=== PATIENT | female | born 1965 | race Caucasian/White ===

== ENCOUNTER 2024-10-02 14:28 | Inpatient (IN) | payer BC, SELFPAY ==
[2024-10-02 08:17] VITALS: BP 128/79
[2024-10-02 09:32] LABS: % Basophils 0.2 % (0-2); % Immature Granulocytes 0.4 % (0-0.5); % Lymphocytes 15.8 % (20.5-51.1); % Monocytes 9.5 % (1.7-9.3); % Neutrophils 74.1 % (42.2-75.2); Absolute Immature Granulocytes 0.1 10^3/uL (0-0.05); Absolute Monocytes 1.2 10^3/uL (0.1-0.6); Absolute Neutrophils 9.5 10^3/uL (1.4-6.5); Hematocrit 36.9 % (37.0-47.0); Hemoglobin 12.5 g/dL (12.0-16.0); Mean Corp Hgb Conc. 33.9 g/dL (33.0-37.0); Mean Corpuscular Hgb 29.8 pg (27.0-31.0); Mean Corpuscular Volume 87.9 fL (81.0-99.0); Mean Platelet Volume 9.7 fL (7.4-10.4); Nucleated Red Blood Cells % 0 %; Platelet Count 288 10^3/uL (130-400); Red Cell Dist. Width 12.9 % (11.5-14.5); White Blood Cell Count 12.8 10^3/uL (4.8-10.8)
[2024-10-02 09:41] LABS: ALT (SGPT) 21 U/L (0-35); AST (SGOT) 25 U/L (14-36); Albumin 4.2 g/dl (3.5-5.0); Alkaline Phosphatase 78 U/L (38-126); Blood Urea Nitrogen 18 mg/dl (7-17); Carbon Dioxide 30 mmol/L (22-30); Chloride 103 mmol/L (98-107); Glucose 117 mg/dl (70-99); Lipase 67 U/L (23-300); Potassium 4.7 mmol/L (3.5-5.1); Sodium 139 mmol/L (135-145); Total Bilirubin 0.6 mg/dl (0.2-1.3); Total Protein 6.8 g/dl (6.3-8.2); eGFR > 60.00
--- NOTE | 2024-10-02 09:42 | ED.GENMED ---
History of Present Illness
General
Chief Complaint: Abdominal Pain
Source: patient
Exam Limitations: none
Time Seen by Provider: 10/02/24 09:14
History of Present Illness
History of Present Illness:
59yoF with a history of hypertension and thyroid cancer s/p thyroidectomy presenting for evaluation of abdominal pain. Patient tested positive for the flu 3 days ago. She was prescribed a steroid course as well as Tessalon Perles by urgent care.
She has been having some mild discomfort in her left lower quadrant over the past few days near her scar. She thought she may have pulled a muscle from coughing so much. She got out of the car this morning to go to work when her
abdominal pain acutely worsened. She currently rates her pain as a 10/10 in severity. She had 1 episode of vomiting today but no longer feels nauseous. She had a loose bowel movement this morning. She also states that her urine appeared an
orange color and she was having a hard time initiating her urine stream today. She has been feeling warm the past few days but she is unsure if this is related to her menopause.
Past History
Past History
ED Past Medical History: Hypothyroidism
ED Past Surgical History: Other (Thyroidectomy)
Phy Exam
Physical Exam
Physical Exam:
Appears uncomfortable due to pain, nontoxic
General Physical Exam
General Presentation: mild distress
General age: appears stated age
General Skin: warm and dry
General Habitus: normal
General Mental: alert
ENT Exam
ENT Exam: normocephalic
Cardiovascular Exam
Cardiovascular Exam: regular rate/rhythm and no murmur
Pulmonary Exam
Pulmonary Exam: lungs clear, no respiratory distress, no rales, no crackles and no rhonchi
Gastrointestinal Exam
Gastrointestinal Exam: soft, non distended and other (Abdomen diffusely tender to light palpation. +Voluntary guarding. Abdomen soft, non-distended.)
Neurological Exam
Neurological Exam: alert
Heriberto Coma Scale
Eye Opening: Spontaneous
Verbal Response: Oriented
Motor Response: Obeys Commands
GCS Total Score: 15
Skin Exam
Skin Exam: normal color and warm/dry
Course
Orders/Labs/Results
Orders:
Orders
10/02/24 09:13
Complete Blood Count/With Diff Urgent
Comprehensive Metabolic Panel Urgent
Lipase Urgent
10/02/24 09:40
Electrocardiogram (*1) Urgent
Reason for Study: Vertigo / Dizzy
EKG- Treatment ONCE
0.9% Sodium Chloride 1000 ml [Nss] 1,000 ml IV BOLUS
HYDROmorphone [Dilaudid] 0.5 mg IV NOW STA
Iohexol [Omnipaque] See Protocol PO NOW STA
Ketorolac [Toradol] 15 mg IV NOW STA
Ondansetron Injectable [Zofran] 4 mg IV NOW STA
10/02/24 09:41
CT Abd/pel W Iv And Oral Contr Urgent
Comment:
Reason For Exam: LLQ pain
10/02/24 12:26
Urinalysis Reflex To Culture Urgent
Date Specimen was Collected: 10/02/24
Time Specimen was Collected: 10:52
Urine Microscopic Reflex Cult Urgent
Urine Culture Urgent
SY Source: U
Specimen Description:
Date Specimen was Collected: 10/02/24
Time Specimen was Collected: 10:52
10/02/24 13:35
PTT Urgent
Prothrombin Time Urgent
Abnormal Lab Results
10/02/24 10/02/24
09:13 12:26
WBC 12.8 H 10^3/uL
(4.8-10.8)
Hct 36.9 L %
(37.0-47.0)
Abs Immat Gran (auto) 0.1 H 10^3/uL
(0-0.05)
Absolute Neuts (auto) 9.5 H 10^3/uL
(1.4-6.5)
Absolute Monos (auto) 1.2 H 10^3/uL
(0.1-0.6)
Lymphocytes % 15.8 L %
(20.5-51.1)
Monocytes % 9.5 H %
(1.7-9.3)
BUN 18 H mg/dl
(7-17)
Glucose 117 H mg/dl
(70-99)
Ur Occult Blood Reflex 1+ A
(Negative)
Leukocyte Esterase Rfl 1+ A
(Negative)
Urine Bacteria (Reflex) Few A
(Negative)
10/02/24 09:13
10/02/24 09:13
Vital Signs
Initial and Last Documented VS:
Initial Vital Signs
Temp Pulse Resp BP Pulse Ox
97.5 F 82 20 128/79 97
10/02/24 08:17 10/02/24 08:17 10/02/24 08:17 10/02/24 08:17 10/02/24 08:17
Last Documented Vital Signs
Temp Pulse Resp BP Pulse Ox
97.5 F 82 20 128/79 99
10/02/24 08:17 10/02/24 08:17 10/02/24 08:17 10/02/24 08:17 10/02/24 12:15
MDM/Problems Addressed
Differential Diagnosis Includes:
59yoF here with LLQ pain. Tested positive for the flu 3 days ago. Has been having mild LLQ pain with coughing the past few days. Abrupt onset of severe pain today while getting out of the car. Vomited once. VSS. Patient appears uncomfortable but is
nontoxic. There is diffuse tenderness to the abdomen with light palpation and voluntary guarding. Differential diagnosis includes but is not limited to: Diverticulitis, perforated viscus, kidney stone, musculoskeletal
Initial ED plan: Check abdominal labs, UA, and CT abdomen with IV/PO contrast. IV Dilaudid, Toradol, Zofran, and fluid bolus for symptoms.
*EKG
Interpreted by ED Provider?: Yes
EKG Intrepretation Date: 10/02/24
Heart Rate: 73
Rate: normal
Rhythm: sinus
[place]: left axis deviation
Interval: normal interval
QRS Pattern: normal QRS
Ischemia: no ischemia
*Critical Care Note
Total Time (30-74mins, 75-104mins- exclusive of procedures): Not Applicable
Update Note
Update Note:
Labs reveal a leukocytosis with a white count of 12.8. Leukocytosis possibly reactive due to steroid use as well as vomiting. Remainder of labs unremarkable. CT shows a rectus hematoma in the left hemipelvis measuring 5.6 x 5.5 x 12.6 cm with
compression of the urinary bladder and inflammatory stranding throughout the pelvic fat. Hemoglobin stable at 12.5. Case discussed with general surgeon, Dr. Cochran, who recommends serial H&Hs, checking coags, and reversal of any blood thinners.
Patient not taking any anticoagulation. Will admit for further evaluation and management.
ED Attending Note
-
Portions of this chart may have been created with voice recognition software.� Occasional wrong word or��sound alike� substitutions may have occurred due to the inherent limitations of voice recognition software.
Discharge Plan
Departure
Patient Disposition: Admit
Date of Disposition: 10/02/24
Time of Disposition: 13:51
Presentation/result/management discussed w/ accepting MD/DO: Hospitalist
Discharge Problem:
Hematoma of rectus sheath
Prescriptions:
No Action
levothyroxine [Levoxyl] 88 MCG tablet
88 mcg PO DAILY
meclizine 25 MG tablet
25 mg PO BIDPRN PRN (Reason: vertigo) Qty: 10 0RF
Referrals:
Lexis Burdick DO [Family Provider] -
Interventions
Interventions:
*Risk Screen - Suicide Last Done: 10/02/24 08:19
*General Assessment Last Done: 10/02/24 08:19
*Neglect/Abuse Screening Last Done: 10/02/24 09:25
*ED COVID-19 Vaccine History Last Done: 10/02/24 08:19
OZ-Otyjyz-Jwyonebdvg Assessment Last Done: 10/02/24 09:36
Discharge Date and Time
Print Language: ALBANIAN
[2024-10-02] MEDS: NSS 1000 IV (10:08)
[2024-10-02] MEDS: OMNIPAQUE 50 ML PO (10:09)
[2024-10-02] MEDS: DILAUDID 0.5 MG IV ×3 (10:09→21:53)
[2024-10-02] MEDS: ZOFRAN 4 MG IV (10:10)
[2024-10-02] MEDS: TORADOL 15 MG IV (10:10)
[2024-10-02 12:53] LABS: Urine Albumin Negative (Neg - Trace); Urine Bilirubin Negative (Negative); Urine Character Clear (Clear); Urine Color Yellow; Urine Glucose Negative (Negative); Urine Ketone Negative (Negative); Urine Leukocyte 1+ (Negative); Urine Nitrite Negative (Negative); Urine Occult Blood 1+ (Negative); Urine Urobilinogen Negative (Neg - 1+)
[2024-10-02 13:01] LABS: Urine Bacteria Few (Negative); Urine Red Blood Cell 0-2 /HPF (0-2); Urine Squamous Cell 0-2 /LPF (Few); Urine White Cell 0-2 /HPF (0-5)
--- NOTE | 2024-10-02 14:00 | HPS.HSE ---
Family Physician
-
Family Physician: Lexis Burdick
Chief Complaint
-
left lower quadrant pain
History of Present Illness
59yoF with a history of hypertension and thyroid cancer s/p thyroidectomy presenting for evaluation of abdominal pain. Patient tested positive for the flu 3 days ago. She was prescribed a steroid course as well as Tessalon Perles by urgent care.
She has been having some mild discomfort in her left lower quadrant since Sunday. She thought she may have pulled a muscle from coughing so much. today her left quadrant pain got worst. She had an episode of vomiting today. She was nauseous
yesterday. She had an episode of diarrhea last evening and this morning. Patient stated cough since . She also states that her urine appeared an orange color. Patient denied fever. Stated chills. Patient denied chest pain or short of
breath. Patient denied dysuria or hematuria.
CT obtained with impression of ectus hematoma in the left hemipelvis associated with 5.6 x 5.5 x 12.6 cm hematoma in the left hemipelvis with compression of the urinary bladder and inflammatory stranding throughout the pelvic fat. Patient received
Dilaudid, Toradol, normal saline, Zofran in ER.
Admitted for further management
Medical History
Past Medical History
Past Medical History: Reports Other
Additional Past Medical History:
Hypertension
Hypothyroidism
Esophageal spasm
Herpes zoster
Uterine leiomyoma
Hyperlipidemia
Thyroid gland neoplasm
Past Surgical History: Reports Other
Additional Past Surgical History:
Thyroidectomy
Social History
Tobacco: Non-smoker
Alcohol: None
Drug: None
Personal:
Living: With Family
Employment: Employed
Family History
Family History: Not pertinent
Allergies / Home Medications
Allergies reflects when Allergies were last updated in [facility].
Home Medications with original date entered in [facility]
Allergy/Medication List:
Allergies
Allergy/AdvReac Type Severity Reaction Status Date / Time
codeine Allergy Nausea / Verified 10/02/24 08:22
Vomiting
Home Medications
levothyroxine 88 mcg tablet (Levoxyl) 88 mcg PO DAILY 12/10/20
meclizine 25 mg tablet 25 mg PO BIDPRN PRN vertigo #10 tabs 12/10/20
Review of Systems
-
Constitutional: Reports No Symptoms
EENT: Reports No Symptoms
Respiratory: Reports Cough
Cardiac: Reports No Symptoms
Abdomen/GI: Reports Abdominal Pain, Nausea, Vomiting and Diarrhea
: Reports No Symptoms
Musculoskeletal: Reports No Symptoms
Skin: Reports No Symptoms
Neurological: Reports No Symptoms
Endocrine: Reports No Symptoms
Hematologic/Lymphatic: Reports No Symptoms
Psych: Reports No Symptoms
Physical Exam
Vital Signs
Vital Signs
Temp Pulse Resp BP Pulse Ox
97.5 F 82 20 128/79 98
10/02/24 08:17 10/02/24 08:17 10/02/24 08:17 10/02/24 08:17 10/02/24 10:00
Physical Exam
General: Well Developed, Well Nourished and No Apparent Distress
HEENT: NormoCephalic, Moist mucous membranes and Atraumatic
Respiratory: Clear
Cardiac: S1/S2 and Regular Rhythm; No Murmur or Rub
GI: Soft, Non Tender, Non Distended and Normal Bowel Sounds; No Organomegaly
Rectal: Deferred by Provider
Musculoskeletal: No Clubbing, No Cyanosis and No Edema
Skin: No Rash
Neuro: AO x 3 and Nonfocal/grossly intact
Psych: Calm
Laboratory Results
-
10/02/24 09:13
10/02/24 09:13
Laboratory Results
Total Bilirubin 0.6 mg/dl (0.2-1.3) 10/02/24 09:13
AST 25 U/L (14-36) 10/02/24 09:13
ALT 21 U/L (0-35) 10/02/24 09:13
Alkaline Phosphatase 78 U/L (38-126) 10/02/24 09:13
Lipase 67 U/L (23-300) 10/02/24 09:13
Data Reviewed
-
CT Scan: Report Reviewed by me
Lab Data: Labs Reviewed by me
Impression/Plan
-
# Influenza
-WBCs 12.8 likely from steroids
-Mucinex continue for cough
-Hold steroids
# Left lower quadrant pain likely from rectus hematoma in the left hemipelvis likely from cough and sneeze
-CT with impression of rectus hematoma in the left hemipelvis associated with 5.6 x 5.5 x 12.6 cm hematoma in the left hemipelvis with compression of the urinary bladder and inflammatory stranding throughout the pelvic fat. 1.5 cm left renal cyst,
fibroid uterus
-At present hemoglobin stable
-Continue to trend hemoglobin
-oxy and Dilaudid prn for pain
-Surgery consulted
# History of thyroid cancer status post thyroidectomy
-Levoxyl continued
# Hypertension
-Lisinopril continued with hold parameters
DVT prophylaxis
-SCDs
# CODE STATUS
-Full code
--- NOTE | 2024-10-02 14:43 | W.PN.UPDATE ---
Update Note
Progress Note Update
This is an addendum to the H&P written by Radha Lares on 10/02/2024.� Patient seen and examined independently with GLOBAL SAFETY OFFICER
59-year-old female past medical history of thyroid cancer status post thyroidectomy, hypertension, presenting for abdominal pain in the left lower quadrant for few days.� Patient tested positive for flu 3 days ago with cough for 1 week.� Abdominal
pain significantly worse today.� 1 episode of vomiting today.� Had loose bowel movement this morning.� Also orange-colored urination today with difficulty initiating urine stream.
Patient hemodynamically normal.
Labs show leukocytosis.� Hemoglobin 12.5.
CT abdomen pelvis shows rectus hematoma in the left hemipelvis associated with 5.6x 5.5 x 12.6 centimeter hematoma in the left hemipelvis with compression of the urinary bladder inflammatory stranding throughout the pelvic fat.
Urinalysis unremarkable.
Patient with rectus hematoma.
Coags pending.� Trend hemoglobins.� General surgery consulted.
Bladder scan protocol.
[2024-10-02 14:46] LABS: INR 1.11; PT 14.9 Sec (11.4-14.6)
[2024-10-02 14:47] LABS: APTT 26.3 Sec (23.4-35.0)
[2024-10-02 15:50] VITALS: BMI 30.2
[2024-10-02 15:55] VITALS: BP 117/80
--- NOTE | 2024-10-02 18:44 | CON.GS ---
Medical History
-
Chief Complaint: Cough and lower abdominal pain
History of Present Illness:
Patient is a 59-year-old female who was recently on vacation at [facility]. Flew back on Sunday. Towards the end of her vacation she began to develop a upper respiratory illness and flulike symptoms. She saw her primary care physician and tested
positive for the flu a few days ago. She was prescribed a course of steroids and cough suppressant. Sunday noticed more acute onset of lower abdominal pain which continued to increase in severity yesterday and particularly last night where she
was unable to sleep. She describes the pain as being located in her scar area. Overall she also has abdominal bloating and distention but she has been experiencing this for some time.
She does not recall any recent trauma although she was zip lining on vacation and states that it was a bit rough at the end of the rides but no acute onset of abdominal pain at those times.
Past Medical History
Past Medical History: Other (Hypothyroidism, hypertension, esophageal spasm, hyperlipidemia)
Past Surgical History: Other (Thyroidectomy, x 2)
Social History
Tobacco: Non-Smoker
Personal:
Living: With Family
Allergies / Home Medications
Allergy/AdvReac Type Severity Reaction Status Date / Time
codeine Allergy Nausea / Verified 10/02/24 08:22
Vomiting
�Medication �Instructions �Recorded �Confirmed �Type
acetaminophen 325 mg tablet 650 mg PO Q4HPRN PRN mild pain 10/02/24 10/02/24 History
(Tylenol)
benzonatate 200 mg capsule 200 mg PO TIDPRN PRN cough 10/02/24 10/02/24 History
guar gum 1 tbsp PO DAILY 10/02/24 10/02/24 History
levothyroxine 125 mcg tablet 125 mcg PO DAILY 10/02/24 10/02/24 History
(Synthroid)
lisinopril 20 mg tablet 20 mg PO DAILY 10/02/24 10/02/24 History
methylprednisolone 4 mg tablets in 3 mg PO PER PKG DIR 10/02/24 10/02/24 History
a dose pack (Medrol (Adebayo))
Review of Systems
-
A 10 point review of systems was completed, and was negative except as per HPI.
Physical Exam
Vital Signs
Temp Pulse Resp BP Pulse Ox
97.4 F 80 17 117/80 100
10/02/24 15:55 10/02/24 15:55 10/02/24 15:55 10/02/24 15:55 10/02/24 16:30
10/01/24 10/02/24 10/03/24
06:59 06:59 06:59
Actual Weight 74.843 kg
Body Mass Index (BMI) 30.2
Lab Results
10/02/24 09:13
WBC 12.8 10^3/uL (4.8-10.8) H 10/02/24 09:13
Hgb 12.5 g/dL (12.0-16.0) 10/02/24 09:13
Hct 36.9 % (37.0-47.0) L 10/02/24 09:13
Plt Count 288 10^3/uL (130-400) 10/02/24 09:13
Abs Immat Gran (auto) 0.1 10^3/uL (0-0.05) H 10/02/24 09:13
Neutrophils % 74.1 % (42.2-75.2) 10/02/24 09:13
Physical Exam
General: Well Developed, Well Nourished and No Apparent Distress
HEENT: Normocephalic, Anicteric and Moist Mucous Membranes
Respiratory: Non Labored Respirations
GI: Soft, Non Distended and Tender (Tenderness to palpation with voluntary guarding in the suprapubic and left lower quadrant. Less tenderness in the right lower quadrant. No visible ecchymosis)
Skin: Warm and Other (No visible ecchymosis along the abdominal wall or flanks.)
Psych: Calm
Data Reviewed
-
CT Scan: Image Personally Visualized and interpreted
Assessment / Plan
-
Assessment: 59-year-old female with recent upper respiratory illness/flu who developed an acute left rectus sheath hematoma with extension into the preperitoneal pelvic area in the left lower quadrant.
No radiographic findings suggestive of intraperitoneal extension or rupture. Hemodynamically stable. Initial hemoglobin 12.5. CT with IV contrast. No obvious extravasation within limits of nonangiographic study but stability on delayed imaging
compared to initial imaging.
Plan: Continue with serial H&H and monitoring for signs of ongoing blood loss
Rectus sheath hematomas typically self tamponade with expectant management.
If concerns for ongoing blood loss or acute change would obtain CT angiography
[2024-10-02 19:04] LABS: Hematocrit 28.5 % (37.0-47.0)
[2024-10-02] MEDS: MUCINEX 1200 MG PO (19:59)
[2024-10-02 23:31] VITALS: BP 94/61
--- NOTE | 2024-10-03 02:55 | PTCARENOTE ---
Pt assessed as per work list flow sheet. Pt did have drop in Hgb @ 1900hrs. bingo caller STATION SUPERINTENDENT alerted. No acute distress assessed. Will continue to monitor.
[2024-10-03 04:17] LABS: % Basophils 0.3 % (0-2); % Eosinophils 0.2 % (0-6); % Immature Granulocytes 0.2 % (0-0.5); % Monocytes 14.3 % (1.7-9.3); Absolute Lymphocytes 2.5 10^3/uL (1.2-3.4); Absolute Monocytes 0.8 10^3/uL (0.1-0.6); Absolute Neutrophils 2.4 10^3/uL (1.4-6.5); Hematocrit 27.2 % (37.0-47.0); Hemoglobin 9.6 g/dL (12.0-16.0); Mean Corp Hgb Conc. 35.3 g/dL (33.0-37.0); Mean Corpuscular Hgb 30.2 pg (27.0-31.0); Mean Corpuscular Volume 85.5 fL (81.0-99.0); Mean Platelet Volume 9.8 fL (7.4-10.4); Nucleated Red Blood Cells % 0 %; Platelet Count 201 10^3/uL (130-400); Red Blood Cell Count 3.18 10^6/uL (4.20-5.40); Red Cell Dist. Width 12.9 % (11.5-14.5); White Blood Cell Count 5.8 10^3/uL (4.8-10.8)
[2024-10-03] MEDS: SYNTHROID 125 MCG PO (05:17)
[2024-10-03 07:56] VITALS: BP 102/72
[2024-10-03] MEDS: TYLENOL 650 MG PO (08:36)
[2024-10-03] MEDS: MUCINEX 1200 MG PO ×2 (08:37→20:30)
--- NOTE | 2024-10-03 09:15 | W.PN.HOSP.TC ---
Today's Communication/Plan
-
prefer to discharge tomorrow
Will give blood if HGB lower than 8
Check COVID status
Reactive fever, use Tylenol
Check chest x ray with hx of flu and cough
Assessment / Plan
Assessment / Plan
Physical Exam
General: Well Developed, Well Nourished and No Apparent Distress
HEENT: NormoCephalic, Moist mucous membranes and Atraumatic
Respiratory: Clear
Cardiac: S1/S2 and Regular Rhythm; No Murmur or Rub
GI: Soft, Non Tender, Non Distended and Normal Bowel Sounds; No Organomegaly
Rectal: Deferred by Provider
Musculoskeletal: No Clubbing, No Cyanosis and No Edema
Skin: No Rash
Neuro: AO x 3 and Nonfocal/grossly intact
Psych: Calm
# Influenza
She tested positive Friday 09/29 but symptoms two days before that
Was given steroid course as well as Maryjo Kinney by urgent care, was not given Tamiflu due to mild illness per patient's story
-WBCs 12.8 likely from steroids, WBC is normal
-Mucinex continue for cough
- will check chest x ray
# fever
likely reactive
will monitor
# Acute blood loss anemia
Will give transfusion if HGB lower than 8
# Left lower quadrant pain likely from rectus hematoma in the left hemipelvis likely from cough and sneeze
-CT with impression of rectus hematoma in the left hemipelvis associated with 5.6 x 5.5 x 12.6 cm hematoma in the left hemipelvis with compression of the urinary bladder and inflammatory stranding throughout the pelvic fat. 1.5 cm left renal cyst,
fibroid uterus
-Continue to trend hemoglobin
-oxy and Dilaudid prn for pain
-Surgery consulted
# History of thyroid cancer status post thyroidectomy
-Levoxyl continued
#primary Hypertension
-Lisinopril continued with hold parameters
DVT prophylaxis
-SCDs
# CODE STATUS
-Full code
Total time spent to see the patient on the floor, examine the patient, review data and lab results, discuss treatment plan with patient, nursing staff around 55 minutes
Anticipated Discharge: Within 24 hours
Subjective/Interval History
-
Date of Service: October 03, 2024
Still discomfort and pain in lower abdominal wall upon moving
Objective Data
-
Labs:
Laboratory Results
10/03/24 10/03/24 10/03/24
03:34 03:34 03:34
WBC 5.8
Hgb Cancelled 9.6 L
Hct Cancelled 27.2 L
Plt Count 201 D
Vital Signs:
Vital Signs
Temp Pulse Resp BP Pulse Ox
100.4 F H 87 18 102/72 94
10/03/24 07:56 10/03/24 07:56 10/03/24 07:56 10/03/24 07:56 10/03/24 07:56
I&O
10/02/24 10/03/24 10/04/24
06:59 06:59 06:59
Intake Total 480 / 480
Balance 480 / 480
[2024-10-03 09:56] LABS: COVID-19 Antigen Negative (Negative)
[2024-10-03] MEDS: DILAUDID 0.5 MG IV (10:21)
--- NOTE | 2024-10-03 11:04 | W.PN.UPDATE ---
Update Note
Progress Note Update
Attempted to see pt, off floor for CXR.
--- NOTE | 2024-10-03 12:58 | CM ---
Reviewed the chart notes and spoke with the patient and her spouse at the bedside. The patient resides with her spouse in a two story home with two steps to enter. The patient reports no DME/VN/SNF. The patient confirmed her pharmacy of choice is
[facility]. [facility] continues to be available to patient/family and is monitoring medical plan for needs at discharge.
Plan: Discharge to home when medically stable.
[2024-10-03 13:12] LABS: Hemoglobin 9.4 g/dL (12.0-16.0)
[2024-10-03] MEDS: TYLENOL 1000 MG PO ×3 (13:52→23:31)
[2024-10-03 15:16] VITALS: BP 98/63
--- NOTE | 2024-10-03 16:48 | W.PN.GS2 ---
Today's Communication / Plan
-
s/o
Assessment / Plan
-
59F with spontaneous rectus sheath hematoma in setting of URI
AFVSS, pain controlles, steve PO
Hb stable
OK to DC further serial H/H draws.
Discussed expected course with pt including potential for ecchymosis to appear in the coming days and potentially track down into groin thigh area
Would hold off on pharmacologic DVT ppx, SCDs OK
GS will s/o pls call with ?s
Subjective Data
-
Date of Service: October 03, 2024
AFVSS, pain controlled, denies n/v
Objective Data
-
Intake and Output
10/02/24 10/03/24 10/04/24
06:59 06:59 06:59
Intake Total 480 / 480
Balance 480 / 480
Intake:
Oral fluids 480 / 480
Other:
Number of approximated SMALL 1
amounts of urine
Number of approximated MODERATE 2
amounts of urine
Vital Signs
Temp Pulse Resp BP Pulse Ox
99.5 F 87 18 98/63 98
10/03/24 15:16 10/03/24 15:16 10/03/24 15:16 10/03/24 15:16 10/03/24 15:16
Lab Results
10/03/24 12:49
10/02/24 09:13
Calcium 9.0 mg/dl (8.4-10.2) 10/02/24 09:13
Total Bilirubin 0.6 mg/dl (0.2-1.3) 10/02/24 09:13
AST 25 U/L (14-36) 10/02/24 09:13
ALT 21 U/L (0-35) 10/02/24 09:13
Alkaline Phosphatase 78 U/L (38-126) 10/02/24 09:13
Total Protein 6.8 g/dl (6.3-8.2) 10/02/24 09:13
Albumin 4.2 g/dl (3.5-5.0) 10/02/24 09:13
Physical Exam
-
Gen: NAd
Abd: BLQ ttp with voluntary guarding, no visible ecchymosis
Patient has a diaz catheter: No
Patient has a central line: No
[2024-10-03 23:34] VITALS: BP 117/76
[2024-10-04] MEDS: TYLENOL PO (06:31)
[2024-10-04] MEDS: SYNTHROID 125 MCG PO (06:40)
[2024-10-04] MEDS: SYNTHROID PO (06:43)
[2024-10-04 07:25] VITALS: BP 123/84
[2024-10-04 07:41] LABS: % Basophils 0.3 % (0-2); % Eosinophils 0.4 % (0-6); % Immature Granulocytes 0.4 % (0-0.5); % Lymphocytes 32.5 % (20.5-51.1); % Monocytes 13.6 % (1.7-9.3); % Neutrophils 52.8 % (42.2-75.2); Absolute Lymphocytes 2.2 10^3/uL (1.2-3.4); Absolute Monocytes 0.9 10^3/uL (0.1-0.6); Absolute Neutrophils 3.5 10^3/uL (1.4-6.5); Hematocrit 30.7 % (37.0-47.0); Hemoglobin 10.4 g/dL (12.0-16.0); Mean Corp Hgb Conc. 33.9 g/dL (33.0-37.0); Mean Corpuscular Hgb 29.6 pg (27.0-31.0); Mean Corpuscular Volume 87.5 fL (81.0-99.0); Mean Platelet Volume 9.8 fL (7.4-10.4); Nucleated Red Blood Cells % 0 %; Platelet Count 214 10^3/uL (130-400); Red Blood Cell Count 3.51 10^6/uL (4.20-5.40); Red Cell Dist. Width 12.9 % (11.5-14.5); White Blood Cell Count 6.7 10^3/uL (4.8-10.8)
[2024-10-04] MEDS: MUCINEX 1200 MG PO (09:11)
--- NOTE | 2024-10-04 10:07 | W.DCSUMMARY ---
Discharge Summary
Discharge Data
Date of Admission: 10/02/24
Date of Discharge: 10/04/24
-
Pending Results: No
Hospital Course
59 years old female presented to the hospital with acute onset of lower abdominal wall pain. Patient was recently on vacation and she tested positive for flu. She was having dry cough. In the ER, scan of the abdomen showed rectus hematoma with
5.6 x 5.5 x 12.6 cm hematoma in the left hemipelvis. Patient was admitted to the hospital for observation and pain control. Her hemoglobin dropped from 12.5-9.4 but stabilized around 10.4 upon discharge. Patient was evaluated by surgery. Surgery
recommended pain control. Patient was given Tylenol [id number] and that helped to control her pain and did not need opioid medication. Chest x-ray did not show active disease. Patient did not have hypoxia or persistent cough. Patient
remained hemodynamic stable was discharged home in a stable condition. Patient did not have difficulty passing urine. She was able to ambulate independently without limitation. Patient was given a prescription for oral iron and was advised to
take Dulcolax if she develops constipation.
Discharge Plan
-
Patient Disposition: Home (Routine Discharge)
Discharge Diagnosis/Procedures: Spontaneous rectus sheath hematoma in setting of upper respiratory tract infection with cough.
Acute blood loss anemia, take oral iron, may cause constipation. Use oral Dulcolax 10 mg daily as needed for constipation.
Diet: As tolerated
Referrals:
Lexis Burdick DO [Family Provider] -
Prescriptions:
New
lisinopril 20 mg Tablet
20 mg PO HS Qty: 30 0RF
ferrous sulfate 325 mg (65 mg iron) tablet
325 mg PO DAILY Qty: 30 0RF
bisacodyl [Dulcolax (bisacodyl)] 5 mg tablet,delayed release (DR/EC)
10 mg PO DAILYPRN PRN (Reason: Constipation) Qty: 10 0RF
Continued
acetaminophen [Tylenol] 325 mg Tablet
650 mg PO Q4HPRN PRN (Reason: mild pain)
benzonatate 200 mg Capsule
200 mg PO TIDPRN PRN (Reason: cough)
lisinopril 20 mg Tablet
20 mg PO DAILY
guar gum Packet
1 tbsp PO DAILY
levothyroxine [Synthroid] 125 mcg Tablet
125 mcg PO DAILY
Rx Instructions:
brand name only
Discontinued
methylprednisolone [Medrol (Adebayo)] 4 mg Tablets,Dose Pack
3 mg PO PER PKG DIR
Discharge Orders:
Discharge Patient (As Directed); Ordered 10/04/24
Ordered By: Vasiliy Church
Discharge Date and Time
Print Language: ITALIAN
--- NOTE | 2024-10-04 10:07 | W.PN.HOSP.TC ---
Today's Communication/Plan
-
dc
Assessment / Plan
Assessment / Plan
Physical Exam
General: Well Developed, Well Nourished and No Apparent Distress
HEENT: NormoCephalic, Moist mucous membranes and Atraumatic
Respiratory: Clear
Cardiac: S1/S2 and Regular Rhythm; No Murmur or Rub
GI: Soft, Non Tender, Non Distended and Normal Bowel Sounds; No Organomegaly
Rectal: Deferred by Provider
Musculoskeletal: No Clubbing, No Cyanosis and No Edema
Skin: No Rash
Neuro: AO x 3 and Nonfocal/grossly intact
Psych: Calm
# Influenza
She tested positive Friday 09/29 but symptoms two days before that
Was given steroid course as well as Maryjo Kinney by urgent care, was not given Tamiflu due to mild illness per patient's story
-WBCs 12.8 likely from steroids, WBC is normal
-Mucinex continue for cough
Negative COVID
No cough
No hypxoxia
CXR no active disease
# fever
likely reactive
no recurrent fever.
# Acute blood loss anemia
HGB stable and trending up now
Given oral iron script.
No transfusion was given
# Left lower quadrant pain likely from rectus hematoma in the left hemipelvis likely from cough and sneeze
-CT with impression of rectus hematoma in the left hemipelvis associated with 5.6 x 5.5 x 12.6 cm hematoma in the left hemipelvis with compression of the urinary bladder and inflammatory stranding throughout the pelvic fat. 1.5 cm left renal cyst,
fibroid uterus
Hemoglobin stabilized.
Tylenol is controlling the pain without need for oxycodone or Dilaudid anymore.
-Surgery consulted
# History of thyroid cancer status post thyroidectomy
-Levoxyl continued
#primary Hypertension
-Lisinopril continued with hold parameters
DVT prophylaxis
-SCDs
# CODE STATUS
-Full code
Total discharge time spent to see the patient on the floor, examine the patient, review data and lab results, discuss discharge plan with patient, surgery and nursing staff around 65 minutes
Anticipated Discharge: Today
Subjective/Interval History
-
Date of Service: October 04, 2024
Less abd wall pain
No dysuria or difficulty passing urine
No sob or chest pain
Objective Data
-
Labs:
Laboratory Results
10/04/24
07:23
WBC 6.7
Hgb 10.4 L
Hct 30.7 L
Plt Count 214
Vital Signs:
Vital Signs
Temp Pulse Resp BP Pulse Ox
98.2 F 91 16 123/84 100
10/04/24 07:25 10/04/24 07:25 10/04/24 07:25 10/04/24 07:25 10/04/24 08:00
I&O
10/03/24 10/04/24 10/05/24
06:59 06:59 06:59
Intake Total 480 / 480 1440 / 1440
Balance 480 / 480 1440 / 1440
== END 2024-10-04 10:23 | disposition home or self-care (01) | DRG 605 ==
LOC: 2 NORTH 14:28
PROVIDERS: Emergency Medicine; Physician Assistant; Registered Nurse; ADMITTING PHYSICIAN Hospitalist; ATTENDING PHYSICIAN Internal Medicine; CONSULT PHYSICIAN Surgery; EMERGENCY PHYSICIAN Student in an Organized Health Care Education/Training Program; FAMILY PHYSICIAN Family Medicine
DX: S30.1XXA Contusion of abdominal wall, initial encounter (principal); D62 Acute posthemorrhagic anemia; X58.XXXA Exposure to other specified factors, initial encounter; J11.1 Influenza due to unidentified influenza virus with other respiratory manifestations; K59.00 Constipation, unspecified; N28.1 Cyst of kidney, acquired; D25.9 Leiomyoma of uterus, unspecified; I10 Essential (primary) hypertension; Z85.850 Personal history of malignant neoplasm of thyroid
CPT/HCPCS: 71046; 74177; 80053; 81003; 81015; 83690; 85014; 85018; 85025; 85610; 85730; 87070; 87086; 87811; 93005; 96361; 96374; 96375; 99285; Q9967

== ENCOUNTER 2024-10-09 15:58 | Emergency (ER) | payer BC, SELFPAY ==
[2024-10-09 16:20] VITALS: BP 131/88
--- NOTE | 2024-10-09 16:27 | ED.GENMED ---
ED Provider Triage
<Garima Suárez PA-C - Last Filed: 10/10/24 17:31>
-
Patient seen by provider in Triage?: Seen in Triage
59-year-old female history of hypertension, hypothyroid
Was here last week for an rectus sheath abdominal hematoma spontaneously from coughing. Her hemoglobin down trended from 10-9.4. It measured 12.5 x 5.5 x 5.6 cm. Patient says she has followed up with her family doctor and her hemoglobin came back
up to 10.4. But she has noticed in the last couple of days she has had some swelling and pain in her right calf and now her family doctor is worried that she has a DVT. Patient has been taking oxycodone, just 2 tablets in the last 2 days. She is
a little constipated but then had diarrhea here after taking some Neuralex.
No previous history of DVT
A medical screening examination has been initiated by a qualified medical provider. Based on the assessment performed at this time, it has been determined that an emergent medical condition may exist and the patient has been informed that further
medical evaluation and possible additional diagnostic testing may be needed.
HPI: This is a medical evaluation conducted in person to initiate diagnostic evaluation and provide initial therapeutics. Please see further documentation by the treating clinician.
GENERAL: Alert , in no apparent distress
ENT: No visible abnormalities
LUNGS: No acute respiratory distress
NEUROLOGICAL: Alert and oriented
SKIN: Skin intact. No visible changes.
MUSCULOSKELETAL: Moving extremities normally
Right leg is unilaterally larger than the left, there is a good pulse, slight tenderness to the right calf,
No foot drop,
PSYCH: Normal and appropriate interaction.
59-year-old female with a recent hospitalization for spontaneous abdominal rectus muscle hematoma in her abdomen here now with concerns for possible DVT, she has had some pain and swelling in her right leg unilaterally. Normal pulse. No
respiratory distress. Will send some basic lab work in case patient does have a DVT she will likely need to be wrist ratified because of the recent hematoma
History of Present Illness
<Garima Suárez PA-C - Last Filed: 10/10/24 17:31>
General
Chief Complaint: Musculo-Skeletal Complaint
Time Seen by Provider: 10/09/24 21:05
<Jessie Scott DO - Last Filed: 10/10/24 03:05>
History of Present Illness
History of Present Illness:
59-year-old female history of hypertension, abdominal hematoma of rectus sheath diagnosed last week, discharged on Wednesday 10/04 presenting with right calf pain starting yesterday and worsening today. Patient states that she was seen by her primary
care doctor who recommended come to the emergency department to rule out DVT. Patient states that she has not on blood thinners. Patient denies chest pain or shortness of breath. Patient states abdominal pain has been the same since discharge, no
worsening. Patient states that she is continuing to urinate, had a bowel movement just prior to arrival. Patient states she has been taking opioid at night as needed for pain, states that she is taking Metamucil and senna for bowel regimen.
Patient states that she has been more sedentary since discharge.
Past History
<Garima Suárez PA-C - Last Filed: 10/10/24 17:31>
Past History
ED Past Medical History: Hypothyroidism
ED Past Surgical History: Other (Thyroidectomy)
Phy Exam
<Jessie Scott DO - Last Filed: 10/10/24 03:05>
Physical Exam
Physical Exam:
General: Alert, no acute distress
Head: NCAT
Eyes: clear conjunctiva
Neck: supple
Cardiac: regular rate and rhythm, no murmur
Lungs: clear to auscultation bilaterally. No wheezes, rales, or rhonchi. Speaking full unlabored sentences. No respiratory distress.
Abdomen: soft, nondistended, tender to lower abdomen
MSK: no lower extremity edema bilaterally. No deformity. no tenderness to palpation to right calf. no overlying ecchymosis/erythema/rash. 2+ right DP pulse
Skin: warm, dry
Neuro: Alert and oriented x3. no focal deficits
Course
<Garima Suárez PA-C - Last Filed: 10/10/24 17:31>
Orders/Labs/Results
Orders:
Orders
10/09/24 16:25
Venous Doppler Lwr Ext Rt [US Periph Venous LOWER Ext RT] Urgent
Comment:
Reason For Exam: right leg sweling; recent hospitalization
10/09/24 17:09
Complete Blood Count/With Diff Urgent
Comprehensive Metabolic Panel Urgent
Abnormal Lab Results
10/09/24
17:09
RBC 3.35 L 10^6/uL
(4.20-5.40)
Hgb 10.1 L g/dL
(12.0-16.0)
Hct 29.6 L %
(37.0-47.0)
Plt Count 406 H D 10^3/uL
(130-400)
Abs Immat Gran (auto) 0.1 H 10^3/uL
(0-0.05)
Absolute Monos (auto) 0.9 H 10^3/uL
(0.1-0.6)
Immature Gran % 0.6 H %
(0-0.5)
Monocytes % 9.9 H %
(1.7-9.3)
Glucose 117 H mg/dl
(70-99)
AST 41 H U/L
(14-36)
ALT 39 H U/L
(0-35)
10/09/24 17:09
10/09/24 17:09
Vital Signs
Initial and Last Documented VS:
Initial Vital Signs
Temp Pulse Resp BP Pulse Ox
36.9 C 100 18 131/88 100
10/09/24 16:20 10/09/24 16:20 10/09/24 16:20 10/09/24 16:20 10/09/24 16:20
Last Documented Vital Signs
Temp Pulse Resp BP Pulse Ox
36.9 C 92 18 129/81 99
10/09/24 16:20 10/09/24 20:56 10/09/24 20:56 10/09/24 20:56 10/09/24 20:56
<Jessie Scott, DO - Last Filed: 10/10/24 03:05>
Orders/Labs/Results
Orders:
Orders
10/09/24 16:25
Venous Doppler Lwr Ext Rt [US Periph Venous LOWER Ext RT] Urgent
Comment:
Reason For Exam: right leg sweling; recent hospitalization
10/09/24 17:09
Complete Blood Count/With Diff Urgent
Comprehensive Metabolic Panel Urgent
Abnormal Lab Results
10/09/24
17:09
RBC 3.35 L 10^6/uL
(4.20-5.40)
Hgb 10.1 L g/dL
(12.0-16.0)
Hct 29.6 L %
(37.0-47.0)
Plt Count 406 H D 10^3/uL
(130-400)
Abs Immat Gran (auto) 0.1 H 10^3/uL
(0-0.05)
Absolute Monos (auto) 0.9 H 10^3/uL
(0.1-0.6)
Immature Gran % 0.6 H %
(0-0.5)
Monocytes % 9.9 H %
(1.7-9.3)
Glucose 117 H mg/dl
(70-99)
AST 41 H U/L
(14-36)
ALT 39 H U/L
(0-35)
10/09/24 17:09
10/09/24 17:09
Vital Signs
Initial and Last Documented VS:
Initial Vital Signs
Temp Pulse Resp BP Pulse Ox
36.9 C 100 18 131/88 100
10/09/24 16:20 10/09/24 16:20 10/09/24 16:20 10/09/24 16:20 10/09/24 16:20
Last Documented Vital Signs
Temp Pulse Resp BP Pulse Ox
36.9 C 92 18 129/81 99
10/09/24 16:20 10/09/24 20:56 10/09/24 20:56 10/09/24 20:56 10/09/24 20:56
<Jessie Scott DO - Last Filed: 10/10/24 03:05>
MDM/Problems Addressed
Differential Diagnosis Includes:
DVT, muscle strain, electrolyte abnormality
MDM/Problems Addressed:
Results reviewed. Right lower extremity duplex negative for DVT. Electrolytes within normal limits. Hemoglobin 10.1 (previously 10.4 5 days ago, stable). Patient denies increasing abdominal pain. Hemodynamically stable. Discussed results with
patient at bedside. Recommended continue taking medications as prescribed. Stable for discharge with PCP follow-up
ED Attending Note
<Garima Suárez PA-C - Last Filed: 10/10/24 17:31>
-
Portions of this chart may have been created with voice recognition software.� Occasional wrong word or��sound alike� substitutions may have occurred due to the inherent limitations of voice recognition software.
Discharge Plan
Departure
Patient Disposition: Home (Routine Discharge)
Date of Disposition: 10/09/24
Time of Disposition: 21:35
Patient with high blood pressure during this ER visit?: Yes
Discharge Problem:
Pain of right calf
Instructions: Muscle Strain (DC)
Prescriptions:
No Action
acetaminophen [Tylenol] 325 mg Tablet
650 mg PO Q4HPRN PRN (Reason: mild pain)
benzonatate 200 mg Capsule
200 mg PO TIDPRN PRN (Reason: cough)
lisinopril 20 mg Tablet
20 mg PO DAILY
guar gum Packet
1 tbsp PO DAILY
levothyroxine [Synthroid] 125 mcg Tablet
125 mcg PO DAILY
Rx Instructions:
brand name only
ferrous sulfate 325 mg (65 mg iron) tablet
325 mg PO DAILY Qty: 30 0RF
bisacodyl [Dulcolax (bisacodyl)] 5 mg tablet,delayed release (DR/EC)
10 mg PO DAILYPRN PRN (Reason: Constipation) Qty: 10 0RF
Referrals:
Lexis Burdick, [Family Provider] -
Activity Restrictions/Additional Instructions:
Take Tylenol 975mg every 6 hours as needed for calf pain
Continue taking all medications as prescribed
Walk around every hour
Follow up with primary care doctor in 1-2 days
Return to the emergency department for chest pain, shortness of breath or new/worsening symptoms
Interventions
Interventions:
*Risk Screen - Suicide Last Done: 10/09/24 20:56
*General Assessment Last Done: 10/09/24 20:56
*Neglect/Abuse Screening Last Done: 10/09/24 20:56
*ED COVID-19 Vaccine History Last Done: 10/09/24 16:20
*Nursing Disposition Last Done: 10/09/24 21:46
ED-Musculoskeletal Assessment Last Done: 10/09/24 20:58
Discharge Date and Time
Discharge Date/Time: 10/09/24 21:49
Print Language: ESTONIAN
[2024-10-09 17:18] LABS: % Basophils 0.3 % (0-2); % Eosinophils 0.6 % (0-6); % Immature Granulocytes 0.6 % (0-0.5); % Monocytes 9.9 % (1.7-9.3); % Neutrophils 64.6 % (42.2-75.2); Absolute Eosinophils 0.1 10^3/uL (0-0.7); Absolute Immature Granulocytes 0.1 10^3/uL (0-0.05); Absolute Lymphocytes 2.1 10^3/uL (1.2-3.4); Absolute Monocytes 0.9 10^3/uL (0.1-0.6); Absolute Neutrophils 5.7 10^3/uL (1.4-6.5); Hematocrit 29.6 % (37.0-47.0); Hemoglobin 10.1 g/dL (12.0-16.0); Mean Corp Hgb Conc. 34.1 g/dL (33.0-37.0); Mean Corpuscular Hgb 30.1 pg (27.0-31.0); Mean Corpuscular Volume 88.4 fL (81.0-99.0); Mean Platelet Volume 9.2 fL (7.4-10.4); Nucleated Red Blood Cells % 0 %; Platelet Count 406 10^3/uL (130-400); Red Blood Cell Count 3.35 10^6/uL (4.20-5.40); White Blood Cell Count 8.8 10^3/uL (4.8-10.8)
[2024-10-09 17:31] LABS: ALT (SGPT) 39 U/L (0-35); AST (SGOT) 41 U/L (14-36); Albumin 3.9 g/dl (3.5-5.0); Alkaline Phosphatase 103 U/L (38-126); Blood Urea Nitrogen 13 mg/dl (7-17); Calcium 8.9 mg/dl (8.4-10.2); Carbon Dioxide 28 mmol/L (22-30); Chloride 102 mmol/L (98-107); Glucose 117 mg/dl (70-99); Potassium 4.3 mmol/L (3.5-5.1); Sodium 137 mmol/L (135-145); Total Bilirubin 0.9 mg/dl (0.2-1.3); Total Protein 6.8 g/dl (6.3-8.2); eGFR > 60.00
[2024-10-09 20:55] VITALS: BMI 30.8
[2024-10-09 20:56] VITALS: BP 129/81
== END 2024-10-09 21:49 | disposition home or self-care (01) ==
LOC: EMR 15:58
PROVIDERS: Physician Assistant; EMERGENCY PHYSICIAN Emergency Medicine; FAMILY PHYSICIAN Family Medicine
DX: M79.661 Pain in right lower leg (principal); I10 Essential (primary) hypertension; E89.0 Postprocedural hypothyroidism
CPT/HCPCS: 99284; 80053; 85025; 93971

== ENCOUNTER → 2024-11-19 06:48 | Outpatient (REF) | payer BC, SELFPAY | LOC: RAD 06:48 | PROVIDERS: ATTENDING PHYSICIAN Family Medicine | DX: S30.1XXA Contusion of abdominal wall, initial encounter (principal) | CPT/HCPCS: 76705 ==

== ENCOUNTER → 2025-03-12 07:20 | Outpatient (REF) | payer BC, SELFPAY | LOC: RAD 07:20 | PROVIDERS: ATTENDING PHYSICIAN Family Medicine | DX: S30.1XXA Contusion of abdominal wall, initial encounter (principal) | CPT/HCPCS: 76705 ==

== ENCOUNTER → 2025-05-11 15:13 | Outpatient (REF) | payer BC, SELFPAY | LOC: RCS 15:13 | PROVIDERS: ATTENDING PHYSICIAN Internal Medicine Cardiovascular Disease; FAMILY PHYSICIAN Family Medicine | DX: I10 Essential (primary) hypertension (principal) | CPT/HCPCS: 93306 ==